=== PATIENT | female | born 1970 | race Caucasian/White ===

== ENCOUNTER 2019-09-06 17:47 | Emergency (ER) | payer OTHER ==
--- NOTE | 2019-09-06 18:03 | EDM.PDOC ---
ED HPI GENERAL MEDICAL PROBLEM - General Chief Complaint: Back Pain or Injury Stated Complaint: INJURED BACK Time Seen by Provider: 09/06/19 17:55 Source of Information: Reports: Patient History Limitations: Reports: No Limitations - History of Present Illness INITIAL COMMENTS - FREE TEXT/NARRATIVE: HISTORY AND PHYSICAL: History of present illness: Patient is a 48-year-old female who presents to the ED today with concern of low back pain. Patient states she has a history of chronic back pain for her baseline and sees therapy twice a week as well as has injections multiple times for her chronic back pain. Patient states she has bulging disks as well as arthritis in her low back and has had this evaluated extensively by neurologist. Patient states she is in the process of getting a nerve stimulator put in her low back. Patient states that she was putting groceries away when she felt a burning of her low back. Patient states her back pain today is typical of her low back pain exacerbations and is not unusual or different. Patient denies any loss or retention of bowel bladder function or saddle anesthesia. Patient denies any direct trauma or injury to her back. Patient denies any associated symptoms. Patient states she does have Percocet available to her for pain and states that she took this this morning and it did not work for her. Patient denies fever, chills, chest pain, shortness of breath, or cough. Denies headache, neck stiff ness, change in vision, syncope, or near syncope. Denies nausea, vomiting, abdominal pain, diarrhea, constipation, or dysuria. Has not noted any blood in urine or stool. Patient has been eating and drinking appropriately. Review of systems: As per history of present illness and below otherwise all systems reviewed and negative. Past medical history: As per history of present illness and as reviewed below otherwise noncontributory. Surgical history: As per history of present illness and as reviewed below otherwise noncontributory. Social history: See social history for further information Family history: As per history of present illness and as reviewed below otherwise noncontributory. Physical exam: General: Patient is alert, oriented, and in no acute distress. Patient sitting comfortably on exam table. HEENT: Atraumatic, normocephalic, pupils equal and reactive bilaterally, negative for conjunctival pallor or scleral icterus, mucous membranes moist, TMs normal bilaterally, throat clear, neck supple, nontender, trachea midline. No drooling or trismus noted. No meningeal signs. No hot potato voice noted. Lungs: Clear to auscultation, breath sounds equal bilaterally, chest nontender. Heart: S1S2, regular rate and rhythm without overt murmur Abdomen: Soft, nondistended, nontender. Negative for masses or hepatosplenomegaly. Negative for costovertebral tenderness. Pelvis: Stable nontender. Genitourinary: Deferred. Rectal: Deferred. Skin: Intact, warm, dry. No lesions or rashes noted. Extremities/musculoskeletal: No obvious deformity of the complete spine. No step-offs, crepitus, or point tenderness to palpation of the complete spine. Patient does have full range of motion of the complete spine but does have pain with range of motion of the lumbar spine. Otherwise, atraumatic, negative for cords or calf pain. Neurovascular unremarkable. SLR intact bilaterally. Patellar reflex intact bilaterally. Heel/toe gait intact. Neuro: Awake, alert, oriented. Cranial nerves II through XII unremarkable. Cerebellum unremarkable. Motor and sensory unremarkable throughout. Exam nonfocal. Notes: Discussed importance for follow-up with a primary care provider. Voices understanding and is agreeable to plan of care. Denies any further questions or concerns at this time. Diagnostics: XRay was offered of lumbar spine but patient declines Therapeutics: None Prescription: Diclofenac, Flexeril Impression: Acute exacerbation of chronic low back pain Plan: 1. Rest, ice, elevate the affected area. You can apply ice and or heat 15 minutes on, 15 minutes off. 2. Tylenol as directed for pain management or discomfort. Take medication as prescribed. 3. Follow up with the primary care provider as discussed. Return to the ED as needed and as discussed. Definitive disposition and diagnosis as appropriate pending reevaluation and review of above. Right Low Back Pain Score (Numeric/FACES): 10 - Related Data Allergies Allergy/AdvReac Type Severity Reaction Status Date / Time acetaminophen Allergy Hives Verified 09/06/19 18:08 [From Tylenol-Codeine #3] codeine Allergy Hives Verified 09/06/19 18:08 [From Tylenol-Codeine #3] Home Meds: Home Meds ALPRAZolam [Xanax] 1 mg PO ASDIRECTED PRN 09/06/19 [History] Baclofen 20 mg PO ASDIRECTED PRN 09/06/19 [History] Cyclobenzaprine [Flexeril] 10 mg PO TID PRN #9 tab 09/06/19 [Rx] Diclofenac Sodium [Voltaren] 75 mg PO BIDMEALS PRN #15 tab.cr 09/06/19 [Rx] Gabapentin [Neurontin] 800 mg PO QID 09/06/19 [History] Pantoprazole Sodium [Protonix] 20 mg PO DAILY 09/06/19 [History] Topiramate [Topamax] 10 mg PO DAILY 09/06/19 [History] oxyCODONE HCl/Acetaminophen [Percocet 10-325 mg Tablet] 1 tab PO ASDIRECTED PRN 09/06/19 [History] rOPINIRole HCl [Ropinirole ER] 6 mg PO DAILY 09/06/19 [History] ED ROS GENERAL - Review of Systems Review Of Systems: Comprehensive ROS is negative, except as noted in HPI. ED EXAM, GENERAL - Physical Exam Exam: See Below (see dictation) Course - Vital Signs Last Recorded V/S: Last Vital Signs Temp 97.1 F 09/06/19 18:05 Pulse 96 09/06/19 18:05 Resp 18 09/06/19 18:05 BP 109/76 09/06/19 18:05 Pulse Ox 95 09/06/19 18:05 - Orders/Labs/Meds Orders: Active Orders 24 hr Category Date Time Status Ketorolac [Toradol] Med 09/06/19 18:32 Once 60 mg IM ONETIME ONE Orphenadrine [Norflex] Med 09/06/19 18:32 Once 60 mg IM ONETIME ONE Departure - Departure Time of Disposition: 18:32 Disposition: Home, Self-Care 01 Clinical Impression: Acute exacerbation of chronic low back pain - Discharge Information Referrals: PCP,None [Primary Care Provider] - Forms: ED Department Discharge Additional Instructions: The following information is given to patients seen in the emergency department who are being discharged to home. This information is to outline your options for follow-up care. We provide all patients seen in our emergency department with a follow-up referral. The need for follow-up, as well as the timing and circumstances, are variable depending upon the specifics of your emergency department visit. If you don't have a primary care physician on staff, we will provide you with a referral. We always advise you to contact your personal physician following an emergency department visit to inform them of the circumstance of the visit and for follow-up with them and/or the need for any referrals to a consulting specialist. The emergency department will also refer you to a specialist when appropriate. This referral assures that you have the opportunity for follow-up care with a specialist. All of these measure are taken in an effort to provide you with optimal care, which includes your follow-up. Under all circumstances we always encourage you to contact your private physician who remains a resource for coordinating your care. When calling for follow-up care, please make the office aware that this follow-up is from your recent emergency room visit. If for any reason you are refused follow-up, please contact the [facility] Emergency Department at and asked to speak to the emergency department charge nurse. [facility] [address] [place] [id number] [facility] [address] [place] [id number] 1. Rest, ice, elevate the affected area. You can apply ice and or heat 15 minutes on, 15 minutes off. 2. Tylenol as directed for pain management or discomfort. Take medication as prescribed. 3. Follow up with the primary care provider as discussed. Return to the ED as needed and as discussed. Sepsis Event Note - Focused Exam Vital Signs: Vital Signs Temp Pulse Resp BP Pulse Ox 09/06/19 18:05 97.1 F 96 18 109/76 95 Date Exam was Performed: 09/06/19 Time Exam was Performed: 18:32 - My Orders Last 24 Hours: My Active Orders 09/06/19 18:32 Ketorolac [Toradol] 60 mg IM ONETIME ONE Orphenadrine [Norflex] 60 mg IM ONETIME ONE - Assessment/Plan Last 24 Hours: My Active Orders 09/06/19 18:32 Ketorolac [Toradol] 60 mg IM ONETIME ONE Orphenadrine [Norflex] 60 mg IM ONETIME ONE
[2019-09-06] MEDS ORDERED: Orphenadrine 60 MG/2 ML Inj IM ONE (18:32)
[2019-09-06] MEDS ORDERED: Ketorolac 60 MG/2 ML SDV IM ONE (18:32)
== END 2019-09-06 19:30 | disposition home or self-care (01) ==
LOC: MW.ED 17:47
DX: G89.29 Other chronic pain (principal); M54.5 Low back pain; Z88.8 Allergy status to other drugs, medicaments and biological substances; Z88.5 Allergy status to narcotic agent; Z79.899 Other long term (current) drug therapy
CPT/HCPCS: 96372; 99283; J1885; J2360

== ENCOUNTER 2019-11-08 06:54 | Emergency (ER) | payer OTHER ==
[2019-11-08] MEDS ORDERED: Morphine 4 MG/ML Syringe IM ONE (07:35)
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
== END 2019-11-08 08:10 | disposition home or self-care (01) ==
LOC: MW.ED 06:54
DX: G89.29 Other chronic pain (principal); M54.5 Low back pain; J45.909 Unspecified asthma, uncomplicated; G25.81 Restless legs syndrome; F41.9 Anxiety disorder, unspecified; F17.210 Nicotine dependence, cigarettes, uncomplicated; Z88.6 Allergy status to analgesic agent; Z88.5 Allergy status to narcotic agent; Z79.899 Other long term (current) drug therapy
CPT/HCPCS: 96372; 99283; J2270; J2360

== ENCOUNTER 2019-12-02 12:18 | Emergency (ER) | payer OTHER ==
[2019-12-02] MEDS ORDERED: Dexamethasone 10 MG/ML SDV IM ONE (12:33)
[2019-12-02] MEDS ORDERED: Acetaminophen/HYDROcodone 325-5 MG Tab PO ONE (12:34)
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
== END 2019-12-02 15:44 | disposition home or self-care (01) ==
LOC: MW.ED 12:18
DX: M54.5 Low back pain (principal); F41.9 Anxiety disorder, unspecified; Z79.899 Other long term (current) drug therapy; Z88.5 Allergy status to narcotic agent
CPT/HCPCS: 81003; 96372; 99283; A9270; J1100; J2360

== ENCOUNTER 2019-12-09 16:44 | Emergency (ER) | payer OTHER ==
[2019-12-09] MEDS ORDERED: Sodium Chloride 0.9% 2.5 ML Syringe FLUSH PRN (17:03)
[2019-12-09] MEDS ORDERED: fentaNYL 50 MCG/ML SDV IVPUSH ONE ×2 (17:03→18:47)
[2019-12-09] MEDS ORDERED: Acetaminophen 500 MG Tab PO ONE (17:03)
[2019-12-09] MEDS ORDERED: Sodium Chloride 0.9% 10 ML Syringe FLUSH PRN (17:03)
[2019-12-09] MEDS ORDERED: Lidocaine 5% 700 MG Patch TOP ONE (17:04)
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
[2019-12-09 17:46] LABS: BLOOD UREA NITROGEN,BUN 27 mg/dL (7.0-18.0); CARBON DIOXIDE,CO2 25.5 mmol/L (21.0-32.0); CHLORIDE,CL 108 mmol/L (98-107); GLUCOSE RANDOM 143 mg/dL (74-106); SODIUM,NA 141 mmol/L (136-145)
--- NOTE | 2019-12-09 18:25 | MR ---
MRI lumbar spine Technique: T1 and T2-weighted axial images were obtained from above the T12-L1 disc inferiorly through the L5-S1 disc. T1, T2 and fat suppressed inversion recovery sagittal images were obtained. Findings: Diffuse motion artifact is present. Soft tissue abnormality is noted to the right side at L2. This is most likely due to a large disc fragment although contrast enhanced study is recommended to make sure this does not enhance as a tumor. This finding has a craniocaudal measurement of 1.9 cm. This finding projects into the upper neural foramina at L2-3. Large disc herniation is seen at L4-5. L4-5 disc is somewhat narrowed. This disc herniation extends posteriorly by about 1 cm with additional disc material extending inferior to the L5 vertebral body which may represent free fragment. Finding causes significant central canal stenosis. This questionable free fragment has a craniocaudal measurement about 1.6 cm. Other disks are maintained. No central canal stenosis is otherwise seen. No neural foraminal stenosis is otherwise seen. Impression: 1. Soft tissue abnormality to the right side posterior to L2. This may represent a large disc fragment but recommend patient return for contrast enhanced study to make sure this does not represent a nerve root tumor. 2. Large disc herniation and possible free fragment at L4-5 causing central canal stenosis. Diagnostic code #9 This report was dictated in MDT
--- NOTE | 2019-12-09 18:57 | MR ---
MRI thoracic spine Technique: T2-weighted axial images were obtained 2 contiguous sets through the thoracic spine. T1, T2 and fat suppressed inversion recovery sagittal images were obtained. Findings: C6-7: Diffuse broad-based disc bulge is seen causing mild central canal stenosis. Minimal posterior disc bulge is noted at T2-3. Posterolateral disc bulge is noted at T5-6 to the left side which slightly effaces the anterolateral left thecal sac. No central canal stenosis is seen. Minimal disc bulges are noted posteriorly at T7-8 and T8-9. No central canal stenosis or neural foraminal stenosis is seen. Thoracic cord shows no abnormal signal or mass. No bone marrow edema is seen. Impression: 1. Diffuse broad-based disc bulge at C6-7 causing mild central canal stenosis. Neural foramina not well seen at this level to make comment about. 2. Other mild posterior disc bulges as noted above. Posterolateral disc bulge is noted at T5-6 to the left side which effaces a portion of the anterior thecal sac but causes no central canal stenosis. 3. No additional abnormality is appreciated. Diagnostic code #3 This report was dictated in MDT
[2019-12-09] MEDS ORDERED: Ketorolac 30 MG/ML SDV IVPUSH ONE (19:24)
== END 2019-12-09 19:45 ==
LOC: MW.ED 16:44
DX: M54.42 Lumbago with sciatica, left side (principal); N39.498 Other specified urinary incontinence; E78.00 Pure hypercholesterolemia, unspecified; J45.909 Unspecified asthma, uncomplicated; F41.9 Anxiety disorder, unspecified; F17.210 Nicotine dependence, cigarettes, uncomplicated; Z90.710 Acquired absence of both cervix and uterus; Z88.5 Allergy status to narcotic agent; Z79.899 Other long term (current) drug therapy
CPT/HCPCS: 36415; 51798; 72146; 72148; 80048; 81003; 85025; 85652; 86140; 96374; 96375; 96376; 99284; A9270; J1885; J3010

== ENCOUNTER 2020-10-07 06:46 | Day surgery (SDC) | payer MEDICARE, MEDICAID ==
[2020-10-04 09:55] LABS: BLOOD UREA NITROGEN,BUN 18 mg/dL (7.0-18.0); CARBON DIOXIDE,CO2 24.2 mmol/L (21.0-32.0); CHLORIDE,CL 105 mmol/L (98-107); GLUCOSE RANDOM 113 mg/dL (74-106); POTASSIUM,K 5.2 mmol/L (3.5-5.1); SODIUM,NA 138 mmol/L (136-145)
[~2020-10-07 06:46] MED LIST: Lactated Ringers 1,000 ML IV SCH; Sodium Chloride 0.9% 10 ML SDV IV PRN; Sodium Chloride 0.9% 10 ML Syringe FLUSH PRN; Sodium Chloride 0.9% 2.5 ML Syringe FLUSH PRN
[2020-10-07] MEDS ORDERED: Ondansetron 4 MG/2 ML SDV ONE (07:11)
[2020-10-07] MEDS ORDERED: Lidocaine 2% 5 ML SDV ONE (07:11)
[2020-10-07] MEDS ORDERED: Midazolam 1 MG/ML 2 ML SDV ONE (07:11)
[2020-10-07] MEDS ORDERED: Glycopyrrolate 0.2 MG/ML SDV ONE (07:11)
[2020-10-07] MEDS ORDERED: fentaNYL 250 MCG/5 ML SDV ONE (07:11)
[2020-10-07] MEDS ORDERED: Sugammadex Sodium 200 MG/2 ML VIAL ONE (07:11)
[2020-10-07] MEDS ORDERED: Rocuronium Bromide 50 MG/5 ML Syringe ONE (07:11)
[2020-10-07] MEDS ORDERED: Propofol 200 MG/20 ML SDV ONE (07:11)
[2020-10-07] MEDS ORDERED: Ketorolac 30 MG/ML SDV ONE (07:11)
[2020-10-07] MEDS ORDERED: Fluorescein 5 ML Vial ONE (07:23)
[2020-10-07] MEDS ORDERED: Neomycin/Polymyxin B Bladder Irrigation 1 ML Amp ONE (07:23)
[2020-10-07] MEDS ORDERED: Sodium Chloride 0.9% 20 ML ONE (07:29)
[2020-10-07] MEDS ORDERED: ceFAZolin 1 GM Vial ONE (07:29)
--- NOTE | 2020-10-07 07:40 | PCM.PREANE ---
Preanesthetic Assessment - Anesthesia/Transfusion/Family Hx Anesthesia History: Prior Anesthesia Without Reaction Family History of Anesthesia Reaction: No Transfusion History: Prior Transfusion Without Reaction - Review of Systems General: No Symptoms Pulmonary: No Symptoms Cardiovascular: No Symptoms Gastrointestinal: No Symptoms Neurological: No Symptoms Other: Reports: None - Physical Assessment NPO Status Date: 10/07/20 NPO Status Time: 00:01 Vital Signs: Last Vital Signs Temp 98.2 F 10/07/20 07:11 Pulse 98 10/07/20 07:11 Resp 16 10/07/20 07:11 BP 103/56 L 10/07/20 07:11 Pulse Ox 93 L 10/07/20 07:11 Height: 5 ft 4 in Weight: 238 lb ASA Class: 3 Mental Status: Alert & Oriented x3 Airway Class: Mallampati = 2 Dentition: Reports: Normal Dentition ROM/Head Extension: Limited/Partial Lungs: Clear to Auscultation, Normal Respiratory Effort Cardiovascular: Regular Rate, Regular Rhythm - Lab Values: Laboratory Last Values WBC 11.12 K/uL (4.0-11.0) H 10/04/20 09:24 RBC 4.95 M/uL (4.30-5.90) 10/04/20 09:24 Hgb 15.3 g/dL (12.0-16.0) 10/04/20 09:24 Hct 46.0 % (36.0-46.0) 10/04/20 09:24 MCV 92.9 fL (80.0-98.0) 10/04/20 09:24 MCH 30.9 pg (27.0-32.0) 10/04/20 09:24 MCHC 33.3 g/dL (31.0-37.0) 10/04/20 09:24 RDW Std Deviation 50.2 fl (28.0-62.0) 10/04/20 09:24 RDW Coeff of Bhavna 15 % (11.0-15.0) 10/04/20 09:24 Plt Count 194 K/uL (150-400) 10/04/20 09:24 MPV 10.60 fL (7.40-12.00) 10/04/20 09:24 Nucleated RBC % 0.0 /100WBC 10/04/20 09:24 Nucleated RBCs # 0 K/uL 10/04/20 09:24 Sodium 138 mmol/L (136-145) 10/04/20 09:24 Potassium 5.2 mmol/L (3.5-5.1) H 10/04/20 09:24 Chloride 105 mmol/L (98-107) 10/04/20 09:24 Carbon Dioxide 24.2 mmol/L (21.0-32.0) 10/04/20 09:24 BUN 18 mg/dL (7.0-18.0) 10/04/20 09:24 Creatinine 1.2 mg/dL (0.6-1.0) H 10/04/20 09:24 Est Cr Clr Drug Dosing TNP 10/04/20 09:24 Estimated GFR (MDRD) 47.6 ml/min 10/04/20 09:24 Glucose 113 mg/dL (74-106) H 10/04/20 09:24 Calcium 9.4 mg/dL (8.5-10.1) 10/04/20 09:24 Blood Type B NEGATIVE 10/04/20 09:27 Antibody Screen NEGATIVE 10/04/20 09:27 - Allergies Allergies/Adverse Reactions: Allergies Allergy/AdvReac Type Severity Reaction Status Date / Time codeine Allergy Hives Verified 10/07/20 07:26 [From Tylenol-Codeine #3] - Anesthesia Plan Pre-Op Medication Ordered: None - Acknowledgements Anesthesia Type Planned: General Anesthesia Pt an Appropriate Candidate for the Planned Anesthesia: Yes Alternatives and Risks of Anesthesia Discussed w Pt/Guardian: Yes Pt/Guardian Understands and Agrees with Anesthesia Plan: Yes Additional Comments: npo after mn aodm htn no cv problems tob 1 ppd etoh rare anxiety depression annabel asthma copd prn inhalers chronic pain uses oxycodone ave 15 mg a day restless leg syndrome morbid obesity chronic AB use bid par no question headaches shilpa no cpap PreAnesthesia Questionnaire HEENT History: Reports: Impaired Vision Other HEENT History: wears glasses Cardiovascular History: Reports: High Cholesterol, Hypertension Respiratory History: Reports: Asthma, Sleep Apnea Other Respiratory History: states she is waiting to be retested for sleep apnea, does not use a CPAP Gastrointestinal History: Reports: GERD Genitourinary History: Reports: None 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: Other (See Below) Other OB/BYN History: hysterectomy for uterine cancer Musculoskeletal History: Reports: Back Pain, Chronic, Fracture Other Musculoskeletal History: hx fx right leg and compound fx to right arm Neurological History: Reports: Migraines, Other (See Below) Other Neuro History: restless leg syndrome Psychiatric History: Reports: Anxiety, Depression Endocrine/Metabolic History: Reports: Obesity/BMI 30+, Other (See Below) Other Endocrine/Metabolic History: prediabetic Hematologic History: Reports: Blood Transfusion(s) Immunologic History: Reports: None Oncologic (Cancer) History: Reports: Uterine Dermatologic History: Reports: Other (See Below) Other Dermatologic History: 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 - Infectious Disease History Infectious Disease History: Reports: Chicken Pox - Past Surgical History Head Surgeries/Procedures: Reports: None HEENT Surgical History: Reports: None Cardiovascular Surgical History: Reports: None Respiratory Surgical History: Reports: None GI Surgical History: Reports: EGD Female Surgical History: Reports: Hysterectomy Endocrine Surgical History: Reports: None Neurological Surgical History: Reports: Lumbar Spine, Other (See Below) Other Neurological Surgeries/Procedures: hx back surgery x3 Musculoskeletal Surgical History: Reports: Arthroscopic Knee, Shoulder Surgery, Other (See Below) Other Musculoskeletal Surgeries/Procedures:: right arm surgery x4, 12 surgeries bilateral achilles tendons, Oncologic Surgical History: Reports: None Dermatological Surgical History: Reports: Plastic Surgical Reconstruction/Repair, Skin Graft - SUBSTANCE USE Tobacco Use Status *Q: Current Every Day Tobacco User Tobacco Use Within Last Twelve Months: Cigarettes - HOME MEDS Home Medications: Home Meds ALPRAZolam [Xanax] 1 mg PO BEDTIME PRN 09/06/19 [History] Baclofen 20 mg PO TID PRN 09/06/19 [History] Gabapentin [Neurontin] 800 mg PO QID 09/06/19 [History] Albuterol Sulfate [Albuterol Sulfate HFA] 1 - 2 puff INH ASDIRECTED PRN 10/05/20 [History] Calcium Carbonate [Tums] 1 tab.chew CHEW ASDIRECTED PRN 10/05/20 [History] DULoxetine HCl [Duloxetine HCl] 60 mg PO DAILY 10/05/20 [History] Ergocalciferol (Vitamin D2) [Vitamin D2] 50,000 units PO ASDIRECTED 10/05/20 [History] Famotidine [Pepcid] 20 mg PO ASDIRECTED PRN 10/05/20 [History] Furosemide 20 mg PO DAILY PRN 10/05/20 [History] LORazepam [Lorazepam] 0.5 - 1 tab PO BID PRN 10/05/20 [History] Multivitamin 1 tab PO DAILY 10/05/20 [History] Omeprazole 40 mg PO DAILY 10/05/20 [History] Ondansetron [Zofran] 8 mg PO ASDIRECTED PRN 10/05/20 [History] Potassium Chloride 20 meq PO ASDIRECTED 10/05/20 [History] SUMAtriptan succinate [Imitrex] 100 mg PO ASDIRECTED PRN 10/05/20 [History] Sulfamethoxazole/Trimethoprim [Bactrim Ds Tablet] 1 tab PO BID 10/05/20 [History] Topiramate 50 mg PO BID 10/05/20 [History] atorvaSTATin Calcium [Atorvastatin Calcium] 10 mg PO DAILY 10/05/20 [History] buPROPion HCL [Bupropion HCl Sr] 150 mg PO BID 10/05/20 [History] diphenhydrAMINE HCL [Benadryl Allergy] 25 mg PO ASDIRECTED PRN 10/05/20 [History] lisinopriL [Lisinopril] 20 mg PO BEDTIME 10/05/20 [History] oxyCODONE 5 mg PO ASDIRECTED PRN 10/05/20 [History] oxyCODONE HCl [Oxycodone HCl] 30 mg PO ASDIRECTED PRN 10/05/20 [History] rOPINIRole HCl [rOPINIRole] 3 mg PO BEDTIME 10/05/20 [History] - CURRENT (IN HOUSE) MEDS Current Meds: Current Medications Lactated Ringer's (Ringers, Lactated) 1,000 mls @ 125 mls/hr IV ASDIRECTED [facility] Last Admin: 10/07/20 07:26 Dose: 125 mls/hr Documented by: Sodium Chloride (Sodium Chloride 0.9% 10 Ml Syringe) 10 ml FLUSH ASDIRECTED PRN PRN Reason: Keep Vein Open Sodium Chloride (Sodium Chloride 0.9% 2.5 Ml Syringe) 2.5 ml FLUSH ASDIRECTED PRN PRN Reason: Keep Vein Open Sodium Chloride (Sodium Chloride 0.9% 10 Ml Sdv) 10 ml IV ASDIRECTED PRN PRN Reason: IV Use Discontinued Medications Cefazolin Sodium (Cefazolin 1 Gm Vial) Confirm Administered Dose 2 gm .ROUTE .STK-MED ONE Stop: 10/07/20 07:30 Fentanyl (Fentanyl 250 Mcg/5 Ml Sdv) Confirm Administered Dose 250 mcg .ROUTE .STK-MED ONE Stop: 10/07/20 07:12 Fluorescein Sodium (Fluorescein 5 Ml Vial) Confirm Administered Dose 5 ml .ROUTE .STK-MED ONE Stop: 10/07/20 07:24 Glycopyrrolate (Glycopyrrolate 0.2 Mg/Ml Sdv) Confirm Administered Dose 0.2 mg .ROUTE .STK-MED ONE Stop: 10/07/20 07:12 Sodium Chloride (Normal Saline) Confirm Administered Dose 20 mls @ as directed .ROUTE .ST-MED ONE Stop: 10/07/20 07:30 Ketorolac Tromethamine (Ketorolac 30 Mg/Ml Sdv) Confirm Administered Dose 30 mg .ROUTE .STK-MED ONE Stop: 10/07/20 07:12 Lidocaine (Lidocaine 2% 5 Ml Sdv) Confirm Administered Dose 5 ml .ROUTE .ST-MED ONE Stop: 10/07/20 07:12 Midazolam HCl (Midazolam 1 Mg/Ml 2 Ml Sdv) Confirm Administered Dose 2 mg .ROUTE .STK-MED ONE Stop: 10/07/20 07:12 Neomycin/Polymyxin (Neomycin/Polymyxin B Bladder Irrigation 1 Ml Amp) Confirm Administered Dose 1 ml .ROUTE .STK-MED ONE Stop: 10/07/20 07:24 Ondansetron HCl (Ondansetron 4 Mg/2 Ml Sdv) Confirm Administered Dose 4 mg .ROUTE .ST-MED ONE Stop: 10/07/20 07:12 Propofol (Propofol 200 Mg/20 Ml Sdv) Confirm Administered Dose 200 mg .ROUTE .STK-MED ONE Stop: 10/07/20 07:12 R[place]onium [place] ([place] 50 Mg/5 Ml Syringe) Confirm Administered Dose 50 mg .ROUTE .STK-MED ONE Stop: 10/07/20 07:12 Sugammadex Sodium (Sugammadex Sodium 200 Mg/2 Ml Vial) Confirm Administered Dose 200 mg .ROUTE .STK-MED ONE Stop: 10/07/20 07:12
[2020-10-07] MEDS ORDERED: Albuterol/Ipratropium 3.0-0.5 MG/3 ML Neb Soln ONE (07:41)
[2020-10-07] MEDS ORDERED: Albuterol/Ipratropium 3.0-0.5 MG/3 ML Neb Soln INH ONE (07:45)
--- NOTE | 2020-10-07 08:39 | PCM.OPNOTE ---
- General Post-Op/Procedure Note Date of Surgery/Procedure: 10/07/20 Operative Procedure(s): TVT, Cysto Post-Op Diagnosis: Same Anesthesia Technique: General LMA Primary Surgeon: Dominik Talamantes EBL in mLs: 50 Condition: Good Free Text/Narrative:: Intake & Output 10/06/20 10/07/20 10/07/20 22:59 06:59 14:59 Output Total 10 Balance -10
--- NOTE | 2020-10-07 08:40 | PCM.DCSUM1 ---
Discharge Summary - Hospital Course Diagnosis: Stroke: No - Discharge Data Discharge Date: 10/07/20 Discharge Disposition: Home, Self-Care 01 Condition: Good - Referral to Home Health Primary Care Physician: Emely Briscoe NP - Patient Summary/Data Operative Procedure(s) Performed: TVT, Cysto - Patient Instructions Diet: Usual Diet as Tolerated Activity: As Tolerated Driving: Do Not Drive Showering/Bathing: May Shower - Discharge Plan Home Medications: Home Meds ALPRAZolam [Xanax] 1 mg PO BEDTIME PRN 09/06/19 [History] Baclofen 20 mg PO TID PRN 09/06/19 [History] Gabapentin [Neurontin] 800 mg PO QID 09/06/19 [History] Albuterol Sulfate [Albuterol Sulfate HFA] 1 - 2 puff INH ASDIRECTED PRN 10/05/20 [History] Calcium Carbonate [Tums] 1 tab.chew CHEW ASDIRECTED PRN 10/05/20 [History] DULoxetine HCl [Duloxetine HCl] 60 mg PO DAILY 10/05/20 [History] Ergocalciferol (Vitamin D2) [Vitamin D2] 50,000 units PO ASDIRECTED 10/05/20 [History] Famotidine [Pepcid] 20 mg PO ASDIRECTED PRN 10/05/20 [History] Furosemide 20 mg PO DAILY PRN 10/05/20 [History] LORazepam [Lorazepam] 0.5 - 1 tab PO BID PRN 10/05/20 [History] Multivitamin 1 tab PO DAILY 10/05/20 [History] Omeprazole 40 mg PO DAILY 10/05/20 [History] Ondansetron [Zofran] 8 mg PO ASDIRECTED PRN 10/05/20 [History] Potassium Chloride 20 meq PO ASDIRECTED 10/05/20 [History] SUMAtriptan succinate [Imitrex] 100 mg PO ASDIRECTED PRN 10/05/20 [History] Sulfamethoxazole/Trimethoprim [Bactrim Ds Tablet] 1 tab PO BID 10/05/20 [History] Topiramate 50 mg PO BID 10/05/20 [History] atorvaSTATin Calcium [Atorvastatin Calcium] 10 mg PO DAILY 10/05/20 [History] buPROPion HCL [Bupropion HCl Sr] 150 mg PO BID 10/05/20 [History] diphenhydrAMINE HCL [Benadryl Allergy] 25 mg PO ASDIRECTED PRN 10/05/20 [History] lisinopriL [Lisinopril] 20 mg PO BEDTIME 10/05/20 [History] oxyCODONE 5 mg PO ASDIRECTED PRN 10/05/20 [History] oxyCODONE HCl [Oxycodone HCl] 30 mg PO ASDIRECTED PRN 10/05/20 [History] rOPINIRole HCl [rOPINIRole] 3 mg PO BEDTIME 10/05/20 [History] - Discharge Summary/Plan Comment DC Time >30 min.: Yes - General Info Date of Service: 10/07/20 Functional Status: Reports: Pain Controlled - Review of Systems General: Reports: No Symptoms HEENT: Reports: No Symptoms Pulmonary: Reports: No Symptoms Cardiovascular: Reports: No Symptoms Gastrointestinal: Reports: No Symptoms Genitourinary: Reports: No Symptoms Musculoskeletal: Reports: No Symptoms Skin: Reports: No Symptoms Neurological: Reports: No Symptoms Psychiatric: Reports: No Symptoms - Patient Data Vitals - Most Recent: Last Vital Signs Temp 36.8 C 10/07/20 07:11 Pulse 98 10/07/20 07:11 Resp 16 10/07/20 07:11 BP 103/56 L 10/07/20 07:11 Pulse Ox 93 L 10/07/20 07:11 Weight - Most Recent: 107.955 kg I&O - Last 24 hours: Intake & Output 10/06/20 10/07/20 10/07/20 22:59 06:59 14:59 Output Total 10 Balance -10 Med Orders - Current: Current Medications Lactated Ringer's (Ringers, Lactated) 1,000 mls @ 125 mls/hr IV ASDIRECTED [facility] Last Admin: 10/07/20 07:26 Dose: 125 mls/hr Documented by: Sodium Chloride (Sodium Chloride 0.9% 10 Ml Syringe) 10 ml FLUSH ASDIRECTED PRN PRN Reason: Keep Vein Open Sodium Chloride (Sodium Chloride 0.9% 2.5 Ml Syringe) 2.5 ml FLUSH ASDIRECTED PRN PRN Reason: Keep Vein Open Sodium Chloride (Sodium Chloride 0.9% 10 Ml Sdv) 10 ml IV ASDIRECTED PRN PRN Reason: IV Use Discontinued Medications Albuterol/Ipratropium (Albuterol/Ipratropium 3.0-0.5 Mg/3 Ml Neb Soln) 3 ml INH ONETIME ONE Stop: 10/07/20 07:46 Last Admin: 10/07/20 07:58 Dose: 3 ml Documented by: Albuterol/Ipratropium (Albuterol/Ipratropium 3.0-0.5 Mg/3 Ml Neb Soln) Confirm Administered Dose 3 ml .ROUTE .STK-MED ONE Stop: 10/07/20 07:42 Cefazolin Sodium (Cefazolin 1 Gm Vial) Confirm Administered Dose 2 gm .ROUTE .STK-MED ONE Stop: 10/07/20 07:30 Fentanyl (Fentanyl 250 Mcg/5 Ml Sdv) Confirm Administered Dose 250 mcg .ROUTE .STK-MED ONE Stop: 10/07/20 07:12 Fluorescein Sodium (Fluorescein 5 Ml Vial) Confirm Administered Dose 5 ml .ROUTE .STK-MED ONE Stop: 10/07/20 07:24 Glycopyrrolate (Glycopyrrolate 0.2 Mg/Ml Sdv) Confirm Administered Dose 0.2 mg .ROUTE .STK-MED ONE Stop: 10/07/20 07:12 Sodium Chloride (Normal Saline) Confirm Administered Dose 20 mls @ as directed .ROUTE .STK-MED ONE Stop: 10/07/20 07:30 Ketorolac Tromethamine (Ketorolac 30 Mg/Ml Sdv) Confirm Administered Dose 30 mg .ROUTE .STK-MED ONE Stop: 10/07/20 07:12 Lidocaine (Lidocaine 2% 5 Ml Sdv) Confirm Administered Dose 5 ml .ROUTE .STK-MED ONE Stop: 10/07/20 07:12 Midazolam HCl (Midazolam 1 Mg/Ml 2 Ml Sdv) Confirm Administered Dose 2 mg .ROUTE .STK-MED ONE Stop: 10/07/20 07:12 Neomycin/Polymyxin (Neomycin/Polymyxin B Bladder Irrigation 1 Ml Amp) Confirm Administered Dose 1 ml .ROUTE .STK-MED ONE Stop: 10/07/20 07:24 Ondansetron HCl (Ondansetron 4 Mg/2 Ml Sdv) Confirm Administered Dose 4 mg .ROUTE .STK-MED ONE Stop: 10/07/20 07:12 Propofol (Propofol 200 Mg/20 Ml Sdv) Confirm Administered Dose 200 mg .ROUTE .STK-MED ONE Stop: 10/07/20 07:12 Rocuronium [place] (Rocuronium [place] 50 Mg/5 Ml Syringe) Confirm Administered Dose 50 mg .ROUTE .STK-MED ONE Stop: 10/07/20 07:12 Sugammadex Sodium (Sugammadex Sodium 200 Mg/2 Ml Vial) Confirm Administered Dose 200 mg .ROUTE .STK-MED ONE Stop: 10/07/20 07:12 - Exam General: Reports: Alert, Oriented HEENT: Reports: Pupils Equal, Pupils Reactive, EOMI, Mucous Membr. Moist/[place] Neck: Reports: Supple Lungs: Reports: Clear to Auscultation, Normal Respiratory Effort Cardiovascular: Reports: Regular Rate, Regular Rhythm GI/Abdominal Exam: Normal Bowel Sounds, Soft, Non-Tender, No Organomegaly, No Distention, No Abnormal Bruit, No Mass, Pelvis Stable (Female) Exam: Normal External Exam, Normal Speculum Exam, Normal Bimanual Exam Rectal (Female) Exam: Normal Exam, Normal Rectal Tone Back Exam: Reports: Normal Inspection, Full Range of Motion Extremities: Normal Inspection, Normal Range of Motion, Non-Tender, No Pedal Edema, Normal Capillary Refill Skin: Reports: Warm, Dry, Intact Wound/Incisions: Reports: Healing Well Neurological: Reports: No New Focal Deficit Psy/Mental Status: Reports: Alert, Normal Affect, Normal Mood
--- NOTE | 2020-10-07 09:10 | PCM.POSTAN ---
POST ANESTHESIA ASSESSMENT - MENTAL STATUS Mental Status: Alert (no anesthetic problems), Oriented - VITAL SIGNS Vital Signs: Last Vital Signs Temp 97.7 F 10/07/20 08:42 Pulse 109 H 10/07/20 08:57 Resp 14 10/07/20 08:57 BP 104/47 L 10/07/20 08:57 Pulse Ox 94 L 10/07/20 08:57 - RESPIRATORY Respiratory Status: Respiratory Rate WNL, Airway Patent, O2 Saturation Stable - CARDIOVASCULAR CV Status: Pulse Rate WNL, Blood Pressure Stable - GASTROINTESTINAL GI Status: No Symptoms - POST OP HYDRATION Hydration Status: Adequate & Stable
--- NOTE | 2020-10-07 09:51 | PCM48HPAN ---
Post Anesthesia Note - EVALUATION WITHIN 48HRS OF ANESTHETIC Vital Signs in Normal Range: Yes Patient Participated in Evaluation: Yes Respiratory Function Stable: Yes Airway Patent: Yes Cardiovascular Function Stable: Yes Hydration Status Stable: Yes Pain Control Satisfactory: Yes Nausea and Vomiting Control Satisfactory: Yes Mental Status Recovered: Yes Vital Signs: Last Vital Signs Temp 97.7 F 10/07/20 08:42 Pulse 109 H 10/07/20 08:57 Resp 14 10/07/20 08:57 BP 104/47 L 10/07/20 08:57 Pulse Ox 94 L 10/07/20 08:57
--- NOTE | 2020-10-08 08:16 | OR ---
SURGEON: Dominik Talamantes MD DATE OF PROCEDURE: 10/07/2020 PREOPERATIVE DIAGNOSIS: Stress urinary incontinence. POSTOPERATIVE DIAGNOSES: Stress urinary incontinence OPERATION PERFORMED: Tension-free vaginal tape surgery and cystoscopy. PRIMARY SURGEON: Dominik Talamantes MD CUSTOMER ASSISTANCE REPRESENTATIVE: BRAYDEN chavira. ANESTHESIA: General LMA. ANESTHESIOLOGIST: Anitra Maximo . ESTIMATED BLOOD LOSS: Less than 50 mL. COMPLICATIONS: None. FINDINGS: Abnormal urethrovesical angle. INDICATION TO SURGERY: [place] refer to the admit note. DESCRIPTION OF PROCEDURE: The patient was brought to the OR, properly identified, and after adequate level of anesthesia, the patient was placed in lithotomy position, prepped and draped in sterile fashion as usual. A straight catheter was used to empty the bladder and the Allis clamp was applied beneath the urethra for about area infiltrated with copious amount of normal saline, and using electrocautery, was opened in the midline and dissected laterally. The vaginal mucosa was dissected laterally in a tunneling fashion and creating a tunnel to the TVT and then Solyx TVT placed in place appropriately with due amount of tension to elevate the urethrovesical angle. Once we did that, then the incision in the anterior vaginal wall closed with 3-0 Vicryl continuous interlocking. After the cystoscopy is performed, the bladder was intact and ureteral orifices seen with urine coming from both of them. Satisfied with this finding, the cystoscope was removed. The bladder was emptied and the procedure ended. Instrument and sponge count was correct. The patient tolerated the procedure well, went to recovery room in stable general condition. BRYANNA / LEONOR /[id number]
== END 2020-10-07 09:55 | disposition home or self-care (01) ==
LOC: MW.SDS 06:46
PROVIDERS: ATTEND Obstetrics & Gynecology
DX: N39.3 Stress incontinence (female) (male) (principal); K21.9 Gastro-esophageal reflux disease without esophagitis; G47.30 Sleep apnea, unspecified; G89.29 Other chronic pain; E78.5 Hyperlipidemia, unspecified; E55.9 Vitamin D deficiency, unspecified; I10 Essential (primary) hypertension; E78.00 Pure hypercholesterolemia, unspecified; E66.9 Obesity, unspecified; F17.210 Nicotine dependence, cigarettes, uncomplicated; Z98.890 Other specified postprocedural states; Z88.5 Allergy status to narcotic agent; Z79.899 Other long term (current) drug therapy; Z68.41 Body mass index [BMI] 40.0-44.9, adult
CPT/HCPCS: 36415; 57288; 80048; 82947; 85027; 86850; 86900; 86901; J1885; J2250; J2405; J2704; J3010; J3490; J7120; J0690; J7620-GY

== ENCOUNTER 2021-07-04 17:02 | Emergency (ER) | payer MEDICARE, OTHER ==
[2021-07-04] MEDS ORDERED: Albuterol/Ipratropium 3.0-0.5 MG/3 ML Neb Soln NEB ONE (18:15)
[2021-07-04] MEDS ORDERED: predniSONE 20 MG Tab PO ONE (18:15)
[2021-07-04] MEDS ORDERED: Ondansetron 4 MG Tab.DIS PO ONE (18:15)
== END 2021-07-04 19:01 | disposition home or self-care (01) ==
LOC: MW.ED 17:02
DX: U07.1 COVID-19 (principal); J45.901 Unspecified asthma with (acute) exacerbation; E78.00 Pure hypercholesterolemia, unspecified; J45.909 Unspecified asthma, uncomplicated; Z88.5 Allergy status to narcotic agent; Z79.899 Other long term (current) drug therapy
CPT/HCPCS: 71045; 87804; 93005; 99285; A9270; U0002; J7620-GY